=== PATIENT | male | born 1995 | race Two or more races ===

== ENCOUNTER → 2019-04-08 | Emergency (ER) | payer MEDICAID ==
[~2019-04-08] VITALS: Ht 160 cm; Wt 66.7 kg
[~2019-04-08] MED LIST: IBUPROFEN600 MG ORAL; LIDODERM700 M1 TOPIC; Methocarbamol 500mg tab ORAL ONE; Neosporin Oint 15gm TOPIC ONE; ROBAXIN-750750 MG PO
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
[2019-04-08 14:19] VITALS: BP 122/72
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
--- NOTE | 2019-04-08 15:41 | NUR ---
ED Nurse Note: xray at bedside
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
--- NOTE | 2019-04-08 16:45 | NUR ---
ER DISCHARGE NOTE: Patient is cleared to be discharged per ERMD, pt is aox4, on room air, with stable vital signs. arm sling applied on left arm. pt was given dc and prescription instructions, pt was able to verbalize understanding, pt id band removed without complications. pt is able to ambulate with steady gait. pt took all belongings.
[2019-04-08 16:47] VITALS: BP 125/74
== END | disposition home or self-care (01) ==
LOC: EDBD 14:03 → EMR 15:06
DX: S43.402A Unspecified sprain of left shoulder joint, initial encounter (principal); S70.211A Abrasion, right hip, initial encounter; S29.9XXA Unspecified injury of thorax, initial encounter; R51 Headache; T14.8XXA Other injury of unspecified body region, initial encounter; V43.62XA Car passenger injured in collision with other type car in traffic accident, initial encounter; Y92.410 Unspecified street and highway as the place of occurrence of the external cause
CPT/HCPCS: 73030; Z7502; 99283